=== PATIENT | female | born 1950 | race Caucasian/White ===

== ENCOUNTER 2019-03-21 12:45 | Inpatient (IN) ==
[2019-03-21] MEDS ORDERED: ASPIRIN PO ONE (12:54)
--- NOTE | 2019-03-21 13:18 | PROVIDER DOCUMENTATION ---
HPI-General Adult - General Chief Complaint: Shortness of Breath Stated Complaint: FEET / LEGS SWOLLEN / HEART HURTS Time Seen by Provider: 03/21/19 13:17 Source: patient Allergies/Adverse Reactions: Patient Allergies Allergy/AdvReac Type Severity Reaction Status Date / Time adhesive AdvReac RASH Verified 05/31/17 21:43 Home Medications: Home Medication List Medication Instructions Recorded Confirmed Last Taken Type Biotin [Nail-Ex] 10,000 mcg PO DAILY 04/24/15 03/21/19 05/31/17 09:00 History Rivaroxaban [Xarelto] 20 mg PO QHS #30 tablet 04/30/15 03/21/19 05/30/17 21:00 Rx MVI/Folic Acid/Iron 1 each PO DAILY #0 tablet 06/10/15 03/21/19 09:00 Rx [Precare] Digoxin 1 each PO QPM 05/31/17 03/21/19 05/31/17 09:00 History Folic Acid 1 each PO QAM 05/31/17 03/21/19 05/31/17 09:00 History Oxycodone HCl/Acetaminophen 7.5 each PO Q6H PRN PRN 05/31/17 03/21/19 05/31/17 12:00 History [Percocet 7.5-325 mg Tablet] Ropinirole HCl [Requip] 5 mg PO QHS 05/31/17 03/21/19 05/30/17 21:00 History Buspirone [Buspar] 5 mg PO BID 03/21/19 03/21/19 Unknown History Cyanocobalamin (Vitamin B-12) 1 tab PO DAILY 03/21/19 03/21/19 Unknown History [Vitamin B12] Diltiazem [Cardizem] 1 tab PO BID 03/21/19 03/21/19 Unknown History Escitalopram [Lexapro] 1 tab PO DAILY 03/21/19 03/21/19 Unknown History Furosemide [Lasix] 1.5 tab PO DAILY 03/21/19 03/21/19 Unknown History Methotrexate Sodium/Pf 0.8 ml IM DIRECTED 03/21/19 03/21/19 Unknown History [Methotrexate 1 gm Vial] Potassium Chloride 1 tab PO BID 03/21/19 03/21/19 Unknown History Prednisone 10 mg PO DAILY 03/21/19 03/21/19 Unknown History Promethazine [Phenergan] 1 tab PO DIRECTED PRN 03/21/19 03/21/19 Unknown History Sotalol HCl [Sotalol] 120 mg PO BID 03/21/19 03/21/19 Unknown History Spironolactone 1 tab PO DAILY 03/21/19 03/21/19 Unknown History - History of Present Illness -Gen Adult Nature of Presenting Problems: Pt. is 69 yof that presents with c/o CP that began a couple days ago but that has resolved. She is reporting bilateral lower extremity edema and some SOB. She is on Lasix and reports it isn't helping. Location of Pain/Injury: reports: none. denies: head, face, mouth, neck, chest, upper extremity, hand(s), abdomen, back, pelvis, genitalia, lower extremity, feet, upper body, lower body, generalized, other Pain Radiation: reports: no radiation. denies: arm(s), back, buttocks, chest, epigastric, feet, groin, jaw, flank (L), legs (lower), LLQ, LUQ, neck, periumbilical, flank (R), RLQ, RUQ, shoulder(s), scapula, scrotal, sternal notch, suprapubic, legs (upper), urethral, vaginal, other Quality of Pain: reports: none. denies: aching, pressure, tightness Severity: reports: mild. denies: moderate, severe Onset/Duration: reports: gradual, 2 days ago Timing: reports: still present. denies: improving, intermittent, getting worse Context/Activities at Onset: reports: none. denies: light activity, moderate activity, vigorous activity, recent emotional stress, recent physical stress, recent trauma history, possible bad food, cold exposure, eating, out of country travel, rest, sleep, sexual activity, other Modifying Factors: improves with: nothing Associated Symptoms: reports: shortness of breath, other (lower extremity edema) . denies: denies symptoms, anxiety, arm pain, back/neck pain, chest pain, constipation, cough, diaphoresis, diarrhea, dizziness, EENT symptoms, fatigue, fever/chills, genitourinary problems, headaches, heartburn, joint pain, loss of appetite, malaise, muscle aches, sinus congestion/drainage, nausea, rash, seizure, sensory/motor loss, pain with inspiration, swelling/mass in abdomen, syncope, vomiting, weakness, trouble walking Similar Symptoms Previously?: Yes Recently seen or treated by another doctor?: No Review of Systems - Adult - REVIEW OF SYSTEMS - ADULT Constitutional: reports: no symptoms reported Eyes: reports: no symptoms reported Ears, Nose, Mouth & Throat: reports: no symptoms reported Cardiovascular: reports: see HPI, chest pain. denies: irregular heart rate, orthopnea, syncope Respiratory: reports: see HPI, dyspnea on exertion, shortness of breath. den ies: chronic cough, cough, pleurisy Gastrointestinal: reports: no symptoms reported Genitourinary: reports: no symptoms reported Musculoskeletal: reports: no symptoms reported Integumentary: reports: no symptoms reported Neurological: reports: no symptoms reported Psychiatric: reports: no symptoms reported Past History - Adult - PAST MEDICAL HISTORY-ADULT Review of Records: reports: Old Records Reviewed, Nursing Assessment Review, Medications Reviewed, Social history reviewed & non-contributory. Major Childhood Illnesses: reports: denies history Cardiovascular: reports: A-Fib, CHF, HTN Respiratory: reports: denies history Gastrointestinal: reports: denies history Obstetrical/Gynecological: reports: denies history Genitourinary: reports: denies history Musculoskeletal: reports: arthritis Neurological: reports: denies history Psychiatric: reports: denies history Endocrine/Immune: reports: denies history Other Conditions: reports: denies history - PRIOR SURGERIES/PROCEDURES Surgical/Procedure History: reports: cholecystectomy, hysterectomy, orthopedic (extremity) - IMMUNIZATION STATUS Childhood Immunizations: See Nurse Assessment Flu Vaccine: See Nurse Assessment - FAMILY HISTORY Family History: reviewed, not pertinent - SOCIAL HISTORY Smoking: denies Physical Exam-General - PHYSICAL EXAM-ADULT Initial Vital Signs Reviewed: Yes - CONSTITUTIONAL General Appearance: alert, mild distress, obese. negative: anxious, slow to respond, obtunded, combative - EYES Eyes: PERRL/EOMI, pink conjunctivae - HEAD, EARS, NOSE, MOUTH & THROAT HENMT: normocephalic/atraumatic, moist mucous membranes - NECK Neck: non-tender, full range of motion, supple, normal inspection - RESPIRATORY Respiratory: lungs clear, normal breath sounds. negative: crackles, rales, rhonchi, stridor, wheezing - CARDIOVASCULAR Cardiovascular: normal peripheral pulses, regular rate, rhythm - GASTROINTESTINAL (ABDOMEN) Abdominal Exam: normal bowel sounds, non tender, soft - LYMPHATIC Lymphatic: no adenopathy - MUSCULOSKELETAL Back Exam: normal inspection, no CVA tenderness, no vertebral tenderness Extremity: normal range of motion, non-tender, normal gait, pedal edema. negative: deformity, erythema, inflammation, swelling, tenderness Peripheral Pulses: radial (R): 2+, radial (L): 2+ - SKIN Integumentary: normal color, normal turgor, warm/dry. negative: cyanosis, jaundice, pallor, warm - NEUROLOGIC Neurologic: grossly normal, no motor/sensory deficits - PSYCHIATRIC Psych/Mental Status: normal mood/affect, normal thought content, normal thought process, oriented x 3. negative: anxious, paranoid, tearful Progress - PLAN OF CARE/RESULTS Progress/Plan/Lab Results: Vital Signs - 8 hr 03/21/19 12:48 Temperature 98 F Pulse Rate 81 Respiratory Rate 18 Blood Pressure 126/84 O2 Sat by Pulse Oximetry 97 Orders Category Date Time Status Cardiac Monitoring DIRECTED Care 03/21/19 12:54 Active Oxygen Therapy- ED Nursing DIRECTED Care 03/21/19 12:54 Active Saline Loc NOW Care 03/21/19 12:54 Active CHEST-2 VIEWS [RAD] Stat Exams 03/21/19 12:54 Ordered CBC WITH ELECTRONIC DIFF [HEME] Stat Lab 03/21/19 12:54 Uncollected CK PROFILE [SP CHEM] Stat Lab 03/21/19 12:54 Uncollected COMPREHENSIVE METABOLIC PANEL [CHEM] Stat Lab 03/21/19 12:54 Uncollected PRO B-NATRIURETIC PEPTIDE Stat Lab 03/21/19 12:54 Uncollected PROTIME WITH INR [COAG] Stat Lab 03/21/19 12:54 Uncollected PTT [COAG] Stat Lab 03/21/19 12:54 Uncollected TROPONIN T Stat Lab 03/21/19 12:54 Uncollected Aspirin Med 03/21/19 12:54 Discontinued 325 mg PO NOW ONE CP/SOB/Palp >45 yrs of Age Stat Oth 03/21/19 12:54 Ordered EKG [EKG] Stat Ther 03/21/19 12:54 Ordered Result Diagrams: 03/21/19 14:55 03/21/19 14:55 - EKG 1 Time of EKG reading by physician:: 13:42 EKG Read and Signed by:: Kobe Johnson EKG Interpretation (*Must complete 3 of following elements*): Abnormal Rate: 72 Rhythm: A-fib ST Wave: non-specific ST changes - XRAY 1 XRAY Study: Chest ([facility] - [address], [address], [place] [address] [facility] - [address] [place] [address] Department of Imaging Patient: WICHO ORTEGADM Date: 03/21/19MR#: [id number] : 1950DM Status: [facility]#: [id number] Age/Sex: 69/FRoom/Bed: Loc: P.ED Ordering Physician: Kobe Johnson MD Family Physician: Deng Encarnacion MD Reason for Procedure: chf sob chest pain Signed EXAM: CHEST-2 VIEWS 03/21/2019 HISTORY: chf sob chest pain TECHNIQUE: PA and lateral chest COMMENT: There is cardiomegaly. There is some callus formation in the anterior lower ribs on the right which may be due to previous fracture. No evidence of acute pulmonary disease is present. IMPRESSION: Cardiomegaly. Electronically signed by Doyle Watson 03/21/2019 2:07 PM 03/21/19 1407 Interpreting Physician: Doyle Watson MD Dictated Date/Time: 03/21/19 1406 cc: Kobe Johnson MD; Deng Encarnacion MD) XRAY Interpretation: See note - CONSULTS/PCP/HOSPITALIST Notification #1 *Consult/PCP/Hospitalist*: Dr. Riddle Time Discussed: 16:31 Reason/Comments: Admission Consult Disposition: Will see in ED, Admit Departure - Departure Date of Disposition Decision: 03/21/19 Time of Disposition Decision: 16:18 DIAGNOSIS: CHF (congestive heart failure) Qualifiers: Heart failure type: unspecified Heart failure chronicity: unspecified Qualified Code(s): I50.9 - Heart failure, unspecified Afib Qualifiers: Atrial fibrillation type: unspecified Qualified Code(s): I48.91 - Unspecified atrial fibrillation Disposition: ADMITTED INPATIENT 09 Certified Medical Emergency: Emergent Condition: Stable Referrals and Follow-Ups: Deng Encarnacion MD [Primary Care Provider] - - Critical Care Note This patient required my direct & personal management of CC.: No Attestation - Physician/ PRIYANKA Attestation Patient care was provided by Advanced Practice Provider:: Yes Advanced Practice Provider:: Luz Gibbons Advanced Practice Provider documentation review:: The Mid-level provider documentation, treatment plan and medical decision making was reviewed by the physician who agrees with all treatment and medical decision making by the MLP. The physician spent face to face time with patient:: No Advanced Practice Provider documentation review:: Supervising physician onsite and consulted in the evaluation and care of this patient. The physician did not have a face to face encounter with the patient.
--- NOTE | 2019-03-21 14:10 | Diag Imaging Result Doc PS360 ---
EXAM: CHEST-2 VIEWS 03/21/2019 HISTORY: chf sob chest pain TECHNIQUE: PA and lateral chest COMMENT: There is cardiomegaly. There is some callus formation in the anterior lower ribs on the right which may be due to previous fracture. No evidence of acute pulmonary disease is present. IMPRESSION: Cardiomegaly. Electronically signed by Doyle Watson 03/21/2019 2:07 PM
--- NOTE | 2019-03-21 14:16 | EKG Report ---
Test Performed on : 03/21/2019 1:40:49 PM Test Reason : sob chf chest pain Blood Pressure : / mmHG Vent. Rate : 072 BPM Atrial Rate : 059 BPM P-R Int : 000 ms QRS Dur : 080 ms QT Int : 396 ms P-R-T Axes : 000 003 -31 degrees QTc Int : 433 ms Atrial fibrillation. with a competing junctional pacemaker. Low voltage QRS Nonspecific ST and T wave abnormality Abnormal ECG When compared with ECG of 04-APR-2018 20:57, No significant change was found Unconfirmed Result
[2019-03-21 15:03] LABS: BASO# 0.03 X1000 (0.0-0.2); BASO% 0.4 % (0.0-0.8); EOS# 0.13 X1000 (0.0-0.7); EOS% 1.5 % (0.0-10.0); HEMATOCRIT 39.6 % (37.0-47.0); HEMOGLOBIN 12.3 g/dL (12.0-16.0); IMM GRAN# 0.02 X1000 (0.0-0.04); IMM GRAN% 0.2 % (0.0-0.5); LYMPH# 1.97 X1000 (1.2-3.4); LYMPH% 23.2 % (20.5-51.1); MCH 31.4 PG (27-31); MCHC 31.1 g/dL (33-37); MONO# 0.56 X1000 (0.11-0.59); MONO% 6.6 % (1.7-9.3); MPV 10.4 FL (7.4-10.4); NEUT# 5.79 X1000 (1.4-6.5); NEUT% 68.1 % (42.2-75.2); PLT 278 X1000 (130-400); RBC 3.92 XMIL (4.2-5.4); RDW 14.3 % (11.5-14.5)
[2019-03-21 15:25] LABS: INR 1.25; PROTIME 16.3 Seconds (11.0-16.0)
[2019-03-21 15:26] LABS: PTT 35.4 Seconds (22.3-41.8)
[2019-03-21 15:36] LABS: AGAP 12; ALBUMIN 3.7 g/dL (3.5-5.0); ALKALINE PHOSPHATASE 66 U/L (32-104); BUN 11 mg/dL (8-22); CALCIUM 8.2 mg/dL (8.8-10.2); CHLORIDE 101 mmol/L (98-107); CK PROFILE 30 U/L (24-173); COSMO 278; CREATININE 0.8 mg/dL (0.5-0.9); ESTIMATED GFR > 60; GLUCOSE 93 mg/dL (70-104); GOT 30 U/L (10-30); GPT 24 U/L (10-36); POTASSIUM 4.1 mmol/L (3.5-5.1); SODIUM 140 mmol/L (136-145); TCO2 26 mmol/L (25-35); TOTAL PROTEIN 5.8 g/dL (6.3-8.3)
[2019-03-21] MEDS ORDERED: LASIX IV ONE (15:38)
--- NOTE | 2019-03-21 18:08 | HISTORY AND PHYSICAL ---
CHIEF COMPLAINT: Lower extremity edema and increased weakness. HISTORY OF PRESENT ILLNESS: This is a 69-year-old female with a prior history of chronic atrial fibrillation, diastolic heart failure, and chronic lower extremity edema, who presents to the emergency room complaining of persistent lower extremity edema and leg pain. She states that she normally has lower extremity edema with right greater than left. Usually it will resolve somewhat at night and then increase throughout the day. Over the last 4-5 days, this edema has increased to the point that her legs are hurting and ambulation is difficult. She reports shortness of breath developing over the last 12 hours. She does state that she increased her Lasix dose. In fact, I think she doubled it over the last few days with no relief. She does complain of some chest pain over the last 3 days, although she states that it resolved approximately 24 hours ago. She has been very upset over the recent of her son. PAST MEDICAL HISTORY: Atrial fibrillation, diastolic heart failure, fibromyalgia, gastric bypass with morbid obesity with a BMI of 31. PAST SURGICAL HISTORY: Gastric bypass and knee surgery. SOCIAL HISTORY: She denies alcohol, tobacco, or illicit drug use. ALLERGIES: Adhesive. HOME MEDICATIONS: 1. BuSpar 5 mg p.o. b.i.d. 2. Vitamin B12 1 tablet daily 3. Digoxin 125 mcg daily 4. Cardizem 30 mg p.o. b.i.d. 5. Lexapro 20 mg p.o. daily 6. Lasix. 7. Methotrexate. 8. Percocet 7.5 every 6 hours p.r.n. 9. Potassium. 10. Prednisone. 11. Xarelto. 12. Requip. 13. Sotalol. 14. Spironolactone. Doses will be verified by the nursing staff. REVIEW OF SYSTEMS: Discussed with patient with pertinent positives as stated in the HPI. She denies any syncope, dizziness, palpitations, productive cough, any fevers or chills, night sweats, any nausea, vomiting, diarrhea, constipation, black or bloody vomitus or stools, hematuria, dysuria, frequency, or urgency. PHYSICAL EXAMINATION: GENERAL: This is a 69-year-old female who is sitting up on the stretcher in the emergency room in no distress. VITAL SIGNS: Blood pressure is 122/89 with a heart rate of 78, respirations 16, temperature is 98, with room air saturations 96% to 98%. EYES: Pupils are equal and, round and react to light. EOMs are intact. Sclerae are anicteric. HEENT: Head is normocephalic, atraumatic. Mucous membranes are moist. NECK: Supple with trachea midline. CARDIOVASCULAR: Irregularly irregular rate and rhythm. S1 and S2 appreciated. She has 3 to 4+ pitting edema from just below the knees down bilaterally. Calves are nontender bilaterally. PULMONARY: Breath sounds are clear with no increased work of breathing noted. Chest rises and falls symmetrically with respiration. GASTROINTESTINAL: Abdomen is soft, nontender, nondistended with bowel sounds in all 4 quadrants. GENITOURINARY: No CVA or suprapubic tenderness. NEUROLOGIC: She is tearful at times. She is alert and oriented. SKIN: Warm and dry. LABS: WBC is 8.5 with hemoglobin 12.3, hematocrit 39.6, and platelets 278. Sodium 140, potassium 4.1, BUN 11, creatinine 0.8, glucose 278. Troponin is less than 0.010, with a proBNP of 4126. Chest x-ray reveals cardiomegaly, and EKG reveals atrial fibrillation at a rate of 72. ASSESSMENT: 1. Congestive heart failure. 2. Lower extremity edema. 3. Chronic atrial fibrillation. 4. Chest pain. 5. Rheumatoid arthritis. 6. Anxiety over recent of her son. PLAN: The patient will be admitted to the medical-surgical floor, placed on telemetry for close monitoring. Glynn catheter with strict I &O and daily weights. echocardiogram in the morning. Lasix 80 mg IV every 12 hours. CBC, CMP and magnesium in the morning, trending electrolytes and replete as appropriate. Ativan 0.5 every 6 hours p.r.n. Further treatments pending hospital course. Plan was discussed with Dr. Riddle. Dictated by ZAK Deras for Geovany Riddle MD cc: ZAK Deras MD [facility]
--- NOTE | 2019-03-21 18:36 | HISTORY AND PHYSICAL ---
ADDENDUM: Patient seen and examined by myself. Full note dictated and discussed with nurse practitioner. Patient's legs have been swollen and edematous. States it hurts to walk. She has been decreasing her ambulation lately. Notes that she has been very stressed after the of her son a few months ago. I am going to admit her to the hospital, place her on 80 IV Lasix twice daily, and follow her labs. Further orders as needed. cc: Geovany Riddle MD
[2019-03-21] MEDS: PERCOCET-5 PO PRN (19:00)
[2019-03-21] MEDS: XARELTO PO SCH (20:31)
[2019-03-21] MEDS: CARDIZEM PO SCH (20:31)
[2019-03-21] MEDS: LANOXIN PO SCH (20:31)
[2019-03-21] MEDS: ATIVAN PO PRN (20:31)
[2019-03-21] MEDS: BETAPACE PO SCH (20:32)
[2019-03-21] MEDS: REQUIP PO SCH (20:32)
[2019-03-21] MEDS: LASIX IV SCH (20:33)
[2019-03-21] MEDS ORDERED: LASIX IV SCH (21:00)
[2019-03-21] MEDS: ZOFRAN IV PRN (21:41)
[2019-03-22 02:58] LABS: BASO# 0.03 X1000 (0.0-0.2); BASO% 0.3 % (0.0-0.8); EOS# 0.09 X1000 (0.0-0.7); EOS% 0.9 % (0.0-10.0); HEMATOCRIT 38.3 % (37.0-47.0); HEMOGLOBIN 12.1 g/dL (12.0-16.0); IMM GRAN# 0.02 X1000 (0.0-0.04); IMM GRAN% 0.2 % (0.0-0.5); LYMPH# 1.39 X1000 (1.2-3.4); LYMPH% 13.7 % (20.5-51.1); MCH 31.3 PG (27-31); MCHC 31.6 g/dL (33-37); MCV 99.2 FL (81-99); MONO# 0.57 X1000 (0.11-0.59); MONO% 5.6 % (1.7-9.3); NEUT# 8.01 X1000 (1.4-6.5); NEUT% 79.3 % (42.2-75.2); PLT 278 X1000 (130-400); RBC 3.86 XMIL (4.2-5.4); WBC 10.11 X1000 (4.8-10.8)
[2019-03-22 04:04] LABS: ALBUMIN 3.5 g/dL (3.5-5.0); ALKALINE PHOSPHATASE 63 U/L (32-104); CHLORIDE 102 mmol/L (98-107); GOT 23 U/L (10-30); GPT 20 U/L (10-36); POTASSIUM 3.4 mmol/L (3.5-5.1); SODIUM 143 mmol/L (136-145)
[2019-03-22 04:55] LABS: GLUCOSE 130 mg/dL (70-104); TOTAL PROTEIN 5.5 g/dL (6.3-8.3)
[2019-03-22 05:03] LABS: BUN 10 mg/dL (8-22); CALCIUM 7.9 mg/dL (8.8-10.2); CREATININE 0.8 mg/dL (0.5-0.9); ESTIMATED GFR > 60; TCO2 26 mmol/L (25-35)
[2019-03-22 05:18] LABS: AGAP 16; COSMO 286
[2019-03-22] MEDS: BETAPACE PO SCH ×2 (08:41→20:50)
[2019-03-22] MEDS: LASIX IV SCH ×3 (08:41→23:00)
[2019-03-22] MEDS: FOLIC ACID PO SCH (08:42)
[2019-03-22] MEDS: CARDIZEM PO SCH ×2 (08:42→20:52)
[2019-03-22] MEDS: PERCOCET-5 PO PRN ×2 (08:58→17:08)
[2019-03-22] MEDS ORDERED: LEXAPRO PO SCH ×2 (09:00→21:00)
[2019-03-22] MEDS ORDERED: G.I. COCKTAIL PO ONE (11:46)
[2019-03-22] MEDS: BUSPAR PO SCH ×2 (12:32→20:50)
[2019-03-22] MEDS: ALDACTONE PO SCH (12:33)
[2019-03-22] MEDS: PREDNISONE PO SCH (12:33)
--- NOTE | 2019-03-22 14:29 | PROGRESS NOTE ---
DATE: 03/22/2019 SUBJECTIVE: The patient notes that she has lost a lot of fluid in her bilateral lower extremities. However, now she notes she is having some chest pain but states it is not uncommon for her to have chest pain. Having some burping, belching. Denies any sweating or alonso vomiting. PHYSICAL EXAM: Vital signs: Temperature 98, pulse 77, respiratory rate 20, BP 120/57. General: Patient is awake, currently in no respiratory distress. HEENT: Normocephalic. Neck: Supple. Cardiovascular: Regular rate. Chest: Clear. No crackles. Tender in the epigastric region. Abdomen: Soft, nondistended. Positive bowel sounds. Extremities: Moves all extremities. She has 1+ edema in her bilateral lower extremities which is marked improvement from yesterday. ASSESSMENT: 1. Atrial fibrillation. 2. Diastolic congestive heart failure with exacerbation. 3. Lower extremity edema, improved. 4. Chest pain appears to be more epigastric in nature. We are going to try GI cocktail. 5. Acute anxiety reaction. PLAN: We will decrease her Lasix from 80 IV q.12 to 40 IV q.12. Continue potassium. Try GI cocktail and will follow. cc: Geovany Riddle MD
[2019-03-22] MEDS: ATIVAN PO PRN (18:49)
[2019-03-22] MEDS: LANOXIN PO SCH (20:51)
[2019-03-22] MEDS: XARELTO PO SCH (20:52)
[2019-03-22] MEDS: KLOR-CON PO SCH (20:52)
[2019-03-22] MEDS: REQUIP PO SCH (20:52)
[2019-03-22] MEDS: ZOFRAN IV PRN (23:00)
[2019-03-23 05:42] VITALS: BP 105/58
[2019-03-23 06:56] LABS: HEMOGLOBIN 11.4 g/dL (12.0-16.0); MCH 30.6 PG (27-31); MCHC 30.8 g/dL (33-37); MCV 99.5 FL (81-99); MPV 10.6 FL (7.4-10.4); RBC 3.72 XMIL (4.2-5.4); WBC 12.67 X1000 (4.8-10.8)
[2019-03-23] MEDS ORDERED: ATIVAN PO PRN (07:00)
[2019-03-23 07:09] LABS: AGAP 9; ALBUMIN 3.1 g/dL (3.5-5.0); ALKALINE PHOSPHATASE 54 U/L (32-104); BUN 9 mg/dL (8-22); CALCIUM 7.6 mg/dL (8.8-10.2); CHLORIDE 99 mmol/L (98-107); COSMO 275; CREATININE 0.9 mg/dL (0.5-0.9); ESTIMATED GFR > 60; GLUCOSE 106 mg/dL (70-104); GOT 17 U/L (10-30); GPT 14 U/L (10-36); MAGNESIUM 1.6 mg/dL (1.5-2.7); POTASSIUM 3.3 mmol/L (3.5-5.1); SODIUM 138 mmol/L (136-145); TCO2 30 mmol/L (25-35); TOTAL PROTEIN 5.6 g/dL (6.3-8.3)
[2019-03-23] MEDS ORDERED: PHENERGAN PO PRN (07:13)
[2019-03-23] MEDS: ALDACTONE PO SCH (08:33)
[2019-03-23] MEDS: BETAPACE PO SCH (08:33)
[2019-03-23] MEDS: CARDIZEM PO SCH (08:33)
[2019-03-23] MEDS: PREDNISONE PO SCH (08:33)
[2019-03-23] MEDS: KLOR-CON PO SCH (08:33)
[2019-03-23] MEDS: FOLIC ACID PO SCH (08:34)
[2019-03-23] MEDS: BUSPAR PO SCH (08:34)
--- NOTE | 2019-03-23 08:46 | ECHO REPORT ---
ORDER DATE: 03/22/2019 MEASUREMENTS: Left ventricular end-diastolic 4.8, left ventricular end systolic diameter 3.5, septal thickness 1.6, posterior wall thickness 0.8. SUMMARY: 1. Adequate quality study. 2. Aortic valve is trileaflet and opens normally on 2-dimensional images. Peak gradient across aortic valve is less than 10 mmHg. There is trace aortic regurgitation. Mitral, tricuspid and pulmonic valves are without evidence of structural abnormality with trace mitral regurgitation, mild tricuspid regurgitation, and trace pulmonic insufficiency. The estimated systolic PA pressure by Doppler is 40 to 45 mmHg suggesting mild pulmonary hypertension. Aortic root is normal size. 3. Normal left ventricular dimensions suggested on 2-dimensional images. Basal septum demonstrates mild hypertrophy/sigmoid hypertrophy. Estimated left ejection fraction appears to be at least 60%. No regional wall motion abnormality is evident. Left atrium is moderately enlarged. Left ventricle are moderately enlarged. Right atrium is mildly enlarged. The right ventricle is normal size with grossly preserved right ventricular systolic function. 4. No pericardial effusion. 5. Appearance of inferior vena cava suggests normal central venous pressure. cc: MD Susi Foy CRNP
[2019-03-23] MEDS: PERCOCET-5 PO PRN (08:47)
[2019-03-23] MEDS ORDERED: PATIENT'S OWN MED PO SCH (09:00)
[2019-03-23] MEDS ORDERED: PRECARE PO SCH (09:00)
[2019-03-23] MEDS ORDERED: LASIX PO SCH (09:00)
[2019-03-23] MEDS ORDERED: VITAMIN B-12 PO SCH (09:00)
[2019-03-23] MEDS ORDERED: XARELTO PO SCH (17:00)
--- NOTE | 2019-03-24 10:10 | DISCHARGE SUMMARY ---
ADMISSION DATE: 03/21/2019 DISCHARGE DATE: 03/23/2019 Patient seen and examined by myself. Full note dictated and discussed with nurse practitioner. Patient had approximately 4 L total urine output while she was in the hospital. We have decreased her Lasix to p.o. She is tolerating well and she is asking to go home. She will be discharged home. She will continue all her medications. Will increase her Lasix to 40 mg twice daily. She will follow up outpatient with her primary care in 1 to 2 weeks. cc: Geovany Riddle MD
[2019-03-27] MEDS ORDERED: METHOTREXATE IM SCH (09:00)
== END 2019-03-23 11:55 | disposition home or self-care (01) | DRG 293 ==
LOC: P.ED 12:45 → P.MEDSURG 17:53
PROVIDERS: ATTEND Family Medicine